=== PATIENT | female | born 1980 | race Caucasian/White ===

== ENCOUNTER 2016-09-11 08:48 | Day surgery (SDC) | payer MEDICARE, OTHER ==
--- NOTE | ~2016-09-11 | EGD ---
EGD REPORT [facility] [address] [address] NAME: ENGLISH CLEM VENTURA : [birth year] STATUS : REG [facility]#: [id number] AGE: 36 ADM/REG DATE : 09/11/16 MR#: [id number] REPORT SERV DATE: 09/11/16 DICTATED BY: IVONNE HERNÁNDEZ DATE: 09/11/16 REPORT STATUS : Draft [facility]ANSCRIBED BY: [facility] DATE: 09/11/16 Endoscopy Center Patient Name: English Clem Ventura Date of : 1980 Attending MD: IVONNE HERNÁNDEZ MD Procedure Date No Time: 09/11/2016 Procedure: Upper GI endoscopy Indications: Epigastric abdominal pain, Abdominal pain in the left upper quadrant, Heartburn, Failure to respond to medical treatment Referring MD: YAJAIRA RICARDO Medicines: Propofol per Anesthesia Complications: No immediate complications. Procedure: Pre-Anesthesia Assessment: - ASA Grade Assessment: III - A patient with severe systemic disease. After obtaining informed consent, the endoscope was passed under direct vision. Throughout the procedure, the patient's blood pressure, pulse, and oxygen saturations were monitored continuously. The [facility] [id number] was introduced through the mouth, and advanced to the third part of duodenum. The upper GI endoscopy was accomplished without difficulty. The patient tolerated the procedure well. Findings: Non-severe esophagitis with no bleeding was found in the entire esophagus. There were esophageal mucosal changes suspicious for short-segment Kennedy's esophagus present in the lower third of the esophagus. The maximum longitudinal extent of these mucosal changes was 1 cm in length. Mucosa was biopsied with a cold forceps for histology in a targeted manner and in 4 quadrants at intervals of 1 cm in the lower third of the esophagus. One specimen bottle was sent to pathology. A small hiatus hernia was present. as seen on retroflexion Diffuse mild inflammation characterized by congestion (edema) and erythema was found in the entire examined stomach. Biopsies were taken with a cold forceps for Helicobacter pylori testing. Diffuse mild inflammation characterized by congestion (edema) and erythema was found in the duodenal bulb and in the second part of the duodenum. Biopsies were taken with a cold forceps for evaluation of celiac disease. And giardia, whipple's disease, and enteritis The 3rd part of the duodenum was normal. Biopsies were taken with a cold forceps for evaluation of celiac disease. And giardia, whipple's disease, and enteritis EGD REPORT [address] [place]. [address] NAME: ENGLISH CLEM VENTURA : [birth year] STATUS : REG [facility]#: [id number] AGE: 36 ADM/REG DATE : 09/11/16 MR#: [id number] REPORT SERV DATE: 09/11/16 DICTATED BY: IVONNE HERNÁNDEZ DATE: 09/11/16 REPORT STATUS : Draft TRANSCRIBED BY: [employer] DATE: 09/11/16 Impression: - Non-severe reflux esophagitis. - Esophageal mucosal changes suspicious for short-segment Kennedy's esophagus. Biopsied. - Hiatus hernia. - Gastritis. Biopsied. - Duodenitis. Biopsied. - Normal 3rd part of the duodenum. Biopsied. Recommendation: - Patient has a contact number available for emergencies. The signs and symptoms of potential delayed complications were discussed with the patient. Return to normal activities tomorrow. Written discharge instructions were provided to the patient. - Return to previous diet. - Continue present medications. - Await pathology results. - Return to my office as previously scheduled. - Discharge patient to home. Procedure Code(s): --- Professional --- 09899, Esophagogastroduodenoscopy, flexible, transoral; with biopsy, single or multiple Diagnosis Code(s): --- Professional --- K21.0, Gastro-esophageal reflux disease with esophagitis K22.9, Disease of esophagus, unspecified K44.9, Diaphragmatic hernia without obstruction or gangrene K29.70, Gastritis, unspecified, without bleeding K29.80, Duodenitis without bleeding R10.13, Epigastric pain R10.12, Left upper quadrant pain R12, Heartburn CPT copyright 2013 [employer]. All rights reserved. The codes documented in this report are preliminary and upon drapery cutter machine review may be revised to meet current compliance requirements. Ivonne Hernández MD IVONNE HERNÁNDEZ MD 09/11/2016 11:03 AM This report has been signed electronically. Number of Addenda: 0 EGD REPORT [address] [address] NAME: ENGLISH CLEM VENTURA : [birth year] STATUS : REG [facility] PAT#: [id number] AGE: 36 ADM/REG DATE : 09/11/16 MR#: [id number] REPORT SERV DATE: 09/11/16 DICTATED BY: IVONNE HERNÁNDEZ DATE: 09/11/16 REPORT STATUS : Draft TRANSCRIBED BY: [employer] DATE: 09/11/16 Note Initiated On: 09/11/2016 10:14 AM Scope Withdrawal Time 0 hours 0 minutes 0 seconds
[~2016-09-11 08:48] MED LIST: AMB5 PO; BENTYL20 PO; FORTAMET500 MG PO; LIOR10 PO; MOBIC15 MG PO; NORCO1 TAB PO; NUVIGIL150 MG PO; PRAV10 PO; PROTONIX PO; REQUIP4 MG PO; SAVELLA50 MG PO; SINGULAIR1 PO; SUCR PO; TOPAMAX50 MG PO; WELLXL300 PO
== END 2016-09-11 23:59 | disposition home or self-care (01) ==
LOC: DMU 08:48
PROVIDERS: Internal Medicine Gastroenterology
PROC: 0DB98ZX Excision of Duodenum, Via Natural or Artificial Opening Endoscopic, Diagnostic (ICD-10-PCS; 2016-09-11)
PROC: 0DB68ZX Excision of Stomach, Via Natural or Artificial Opening Endoscopic, Diagnostic (ICD-10-PCS; 2016-09-11)
PROC: 0DB38ZX Excision of Lower Esophagus, Via Natural or Artificial Opening Endoscopic, Diagnostic (ICD-10-PCS; principal; 2016-09-11 10:00)
DX: K29.80 Duodenitis without bleeding (principal); K21.0 Gastro-esophageal reflux disease with esophagitis; K22.9 Disease of esophagus, unspecified; K44.9 Diaphragmatic hernia without obstruction or gangrene; R10.13 Epigastric pain; R10.12 Left upper quadrant pain; R12 Heartburn; I10 Essential (primary) hypertension; E78.5 Hyperlipidemia, unspecified; E66.01 Morbid (severe) obesity due to excess calories; M19.90 Unspecified osteoarthritis, unspecified site; K76.0 Fatty (change of) liver, not elsewhere classified; E11.9 Type 2 diabetes mellitus without complications; F41.9 Anxiety disorder, unspecified; E78.00 Pure hypercholesterolemia, unspecified; F32.9 Major depressive disorder, single episode, unspecified; G25.81 Restless legs syndrome; Z90.89 Acquired absence of other organs; Z90.710 Acquired absence of both cervix and uterus; Z87.891 Personal history of nicotine dependence; Z98.890 Other specified postprocedural states; Z87.442 Personal history of urinary calculi; Z79.899 Other long term (current) drug therapy; Z79.891 Long term (current) use of opiate analgesic
CPT/HCPCS: 88305; J2405